=== PATIENT | male | born 1990 | race African-American/Black ===

== ENCOUNTER 2016-12-17 10:02 | Emergency (ER) | payer OTHER ==
[~2016-12-17] VITALS: Ht 177.8 cm; Wt 76.0 kg
[2016-12-17 10:09] VITALS: BP 158/94
== END 2016-12-17 13:58 | disposition left against medical advice (07) ==
LOC: ER 10:34
DX: R10.84 Generalized abdominal pain (principal); R42 Dizziness and giddiness; R11.0 Nausea; F15.10 Other stimulant abuse, uncomplicated; Z53.21 Procedure and treatment not carried out due to patient leaving prior to being seen by health care provider

== ENCOUNTER 2017-01-02 21:56 | Emergency (ER) | payer OTHER ==
[~2017-01-02] VITALS: Ht 170.2 cm; Wt 59.0 kg
[2017-01-02] MEDS ORDERED: SODIUM CHLORIDE 0.9% 1,000 ML IV ONE (22:46)
[2017-01-02] MEDS ORDERED: LORAZEPAM 2MG/ML CPJ IV STA (22:46)
[2017-01-02 23:22] LABS: CHLORIDE 102 mEq/L (98-107); HEMATOCRIT. 40.8 % (42.0-52.0); HEMOGLOBIN. 13.7 g/dL (14.0-18.0); MEAN CORPUSCULAR VOLUME 77.1 fL (80.0-94.0); MEAN PLATELET VOLUME 8.7 fl (7.4-10.4); PLATELET 309 x1000/uL (130-400); RED BLOOD CELL COUNT 5.29 mill/uL (4.7-6.1); RED CELL DISTRIBUTION WIDTH 13.6 % (11.6-14.6)
[2017-01-02 23:25] LABS: CARBON DIOXIDE 26 mEq/L (21-32)
[2017-01-02 23:27] LABS: ETHANOL BLOOD < 10 mg/dL
[2017-01-02 23:29] LABS: CREATINE KINASE 717 IU/L (39-308)
[2017-01-02 23:55] LABS: PLATELET ESTIMATE NORMAL
[2017-01-03 00:45] LABS: COLOR URINE YELLOW (YELLOW); GLUCOSE URINE NEGATIVE (NEGATIVE); KETONES URINE NEGATIVE (NEGATIVE); LEUKOCYTE ESTERASE URINE 3+ (NEGATIVE); NITRITE URINE NEGATIVE (NEGATIVE); OCCULT BLOOD URINE 2+ (NEGATIVE); PROTEIN URINE NEGATIVE (NEGATIVE); SPECIFIC GRAVITY URINE 1.013 (1.005-1.030)
[2017-01-03 01:09] LABS: CLARITY URINE HAZY (CLEAR)
[2017-01-03 01:24] LABS: *AMPHETAMINES SCREEN URINE PRESUMTIVE POSITIVE (NEGATIVE); *BARBITURATES SCREEN URINE NEGATIVE (NEGATIVE); *BENZODIAZEPINES SCREEN URINE NEGATIVE (NEGATIVE); *COCAINE SCREEN URINE NEGATIVE (NEGATIVE); CANNABINOID URINE SCREEN PRESUMTIVE POSITIVE (NEGATIVE); METHADONE URINE SCREEN NEGATIVE (NEGATIVE); OPIATES URINE SCREEN NEGATIVE (NEGATIVE); PHENCYCLIDINE URINE SCREEN NEGATIVE (NEGATIVE)
[2017-01-03 09:51] VITALS: BP 115/84
== END 2017-01-03 10:15 | disposition home or self-care (01) ==
LOC: ER 22:02
DX: F15.10 Other stimulant abuse, uncomplicated (principal); F12.10 Cannabis abuse, uncomplicated; R41.82 Altered mental status, unspecified
CPT/HCPCS: 36415; 71010; 80053; 80305; 80307; 80329; 81001; 82550; 85025; 87086; 93005; 96361; 96374; 99285; G0482; J2060; J7030; Z7610

== ENCOUNTER 2017-04-28 08:37 | Emergency (ER) | payer OTHER ==
[~2017-04-28] VITALS: Ht 180.3 cm; Wt 80.0 kg
[2017-04-28 08:39] VITALS: BP 122/65
== END 2017-04-28 11:43 | disposition home or self-care (01) ==
LOC: ER 08:44
DX: R06.02 Shortness of breath (principal); F15.10 Other stimulant abuse, uncomplicated; F17.210 Nicotine dependence, cigarettes, uncomplicated
CPT/HCPCS: 71045; 99283

== ENCOUNTER 2018-05-02 04:37 | Emergency (ER) | payer OTHER ==
[~2018-05-02] VITALS: Ht 180.3 cm; Wt 75.0 kg
[2018-05-02 08:03] LABS: CLARITY URINE CLEAR (CLEAR); COLOR URINE YELLOW (YELLOW); KETONES URINE 3+ (NEGATIVE); LEUKOCYTE ESTERASE URINE NEGATIVE (NEGATIVE); NITRITE URINE NEGATIVE (NEGATIVE); OCCULT BLOOD URINE NEGATIVE (NEGATIVE); PROTEIN URINE NEGATIVE (NEGATIVE); SPECIFIC GRAVITY URINE 1.026 (1.005-1.030); UROBILINOGEN URINE 0.2 E.U./dL (0.2-1.0)
[2018-05-02 09:00] VITALS: BP 125/83
== END 2018-05-02 09:01 | disposition home or self-care (01) ==
LOC: ER 04:37
DX: L30.4 Erythema intertrigo (principal); N48.22 Cellulitis of corpus cavernosum and penis; F17.210 Nicotine dependence, cigarettes, uncomplicated; Z90.49 Acquired absence of other specified parts of digestive tract
CPT/HCPCS: 99283

== ENCOUNTER 2020-01-27 18:49 | Emergency (ER) | payer MEDICAID, OTHER ==
[~2020-01-27] VITALS: Ht 180.3 cm; Wt 81.0 kg
[2020-01-27] MEDS ORDERED: SODIUM CHLORIDE 0.9% 1,000 ML IV ONE (20:00)
[2020-01-27] MEDS ORDERED: CEFTRIAXONE SODIUM 250 MG/VIAL IM ONE (20:30)
[2020-01-27 21:30] VITALS: BP 138/78
[2020-01-27 21:31] LABS: BASOPHILS % 0.6 % (0.0-2.0); EOSINOPHILS % 4.6 % (0.0-5.0); HEMATOCRIT. 45.5 % (42.0-52.0); HEMOGLOBIN. 14.8 g/dL (14.0-18.0); LYMPHOCYTES % 18.8 % (20.0-50.0); MEAN CORPUSCULAR HEMOGLOBIN 25.9 pg (28.0-32.0); MEAN CORPUSCULAR VOLUME 79.9 fL (80.0-94.0); MEAN PLATELET VOLUME 8.5 fl (7.4-10.4); MONOCYTES % 14.5 % (2.0-8.0); NEUTROPHILS % 61.5 % (40.0-76.0); PLATELET 258 x1000/uL (130-400); RED BLOOD CELL COUNT 5.69 mill/uL (4.7-6.1); RED CELL DISTRIBUTION WIDTH 14.6 % (11.6-14.6)
[2020-01-27 21:37] LABS: INR 1.1; PROTHROMBIN TIME 11.1 sec (9.6-11.0)
[2020-01-27 21:51] LABS: CHLORIDE 100 mEq/L (98-107); ETHANOL BLOOD < 10 mg/dL
[2020-01-27] MEDS ORDERED: AZITHROMYCIN 500 MG TABLET PO ONE (22:00)
== END 2020-01-27 23:16 | disposition home or self-care (01) ==
LOC: ER 18:49
DX: R07.89 Other chest pain (principal); N34.2 Other urethritis; Z90.49 Acquired absence of other specified parts of digestive tract
CPT/HCPCS: 36415; 80053; 80320; 83690; 83880; 84484; 85025; 85610; 85730; 93005; 96360; 96372; 99284; J0696; J7030; G0480

== ENCOUNTER 2022-07-04 18:52 | Emergency (ER) | payer MEDICAID, OTHER ==
[~2022-07-04] VITALS: Ht 180.3 cm; Wt 86.0 kg
[2022-07-04 18:58] VITALS: BP 140/92
== END 2022-07-04 22:39 | disposition left against medical advice (07) ==
LOC: ER 18:52
DX: Z53.21 Procedure and treatment not carried out due to patient leaving prior to being seen by health care provider (principal)
CPT/HCPCS: 99281

== ENCOUNTER 2024-06-14 10:35 | Emergency (ER) | payer OTHER ==
[~2024-06-14] VITALS: Ht 180.3 cm; Wt 80.0 kg
[2024-06-14 10:43] VITALS: O2SAT 100
[2024-06-14] MEDS ORDERED: CYCL5TAB3 MT (11:30)
[2024-06-14] MEDS ORDERED: IBUP-2030 MT (11:30)
[2024-06-14] MEDS: KETOROLAC 30MG/ML VIAL IV ONE (11:48)
[2024-06-14] MEDS: HYDROCODONE/ACETAMINOPHEN 10/325MG TABLET PO ONE (11:48)
[2024-06-14 11:54] VITALS: BP 122/77; PULSE 73; RESP 18; TEMP 37.1; O2SAT 99
== END 2024-06-14 12:05 | disposition home or self-care (01) ==
LOC: ER 10:37
DX: M54.2 Cervicalgia (principal); Z90.49 Acquired absence of other specified parts of digestive tract
CPT/HCPCS: 99283; 96374; J1885